=== PATIENT | female | born 1985 | race African-American/Black ===

== ENCOUNTER 2019-03-29 22:28 | Inpatient (IN) | payer MEDICAID ==
[~2019-03-29] VITALS: Ht 157.5 cm; Wt 98.0 kg
[2019-03-29] MEDS ORDERED: PNV1TABL76 PO (22:46)
[2019-03-29] MEDS ORDERED: LIDOCAINE HCL 1% 20ML VIAL (Pyxis) INJ INFIL SCH (23:00)
[2019-03-29] MEDS ORDERED: METHYLERGONOVINE MALEATE 0.2 MG/ML IM PRN (23:00)
[2019-03-29] MEDS ORDERED: BUTORPHANOL TARTRATE 2 MG/ML VIAL IV PRN (23:00)
[2019-03-29] MEDS ORDERED: PENICILLIN G POTASSIUM 5 MMU in DEXT 5% WATER 100 ML IV SCH (23:00)
[2019-03-29] MEDS ORDERED: NALOXONE HCL 0.4 MG/ML 1ML VIAL IM PRN (23:00)
[2019-03-29] MEDS ORDERED: CARBOPROST TROMETHAMINE 250 MCG/ML AMPUL IM PRN (23:00)
[2019-03-29] MEDS: LACTATED RINGERS 1,000 ML IV SCH (23:20)
[2019-03-29 23:32] LABS: CLARITY URINE CLEAR (CLEAR); COLOR URINE YELLOW (YELLOW); KETONES URINE TRACE (NEGATIVE); LEUKOCYTE ESTERASE URINE TRACE (NEGATIVE); NITRITE URINE NEGATIVE (NEGATIVE); OCCULT BLOOD URINE NEGATIVE (NEGATIVE); PH URINE 6.5 (4.5-8.0); PROTEIN URINE NEGATIVE (NEGATIVE); SPECIFIC GRAVITY URINE 1.019 (1.005-1.030)
[2019-03-29 23:33] LABS: BASOPHILS % 0.4 % (0.0-2.0); EOSINOPHILS % 1.3 % (0.0-5.0); HEMATOCRIT. 42.4 % (36.0-48.0); HEMOGLOBIN. 14.5 g/dL (12.0-16.0); LYMPHOCYTES % 15.4 % (20.0-50.0); MEAN CORPUSCULAR VOLUME 93.6 fL (81.0-99.0); MEAN PLATELET VOLUME 8.8 fl (7.4-10.4); MONOCYTES % 5.6 % (2.0-8.0); NEUTROPHILS % 77.3 % (40.0-76.0); PLATELET 109 x1000/uL (130-400); RED BLOOD CELL COUNT 4.53 mill/uL (4.2-5.4); RED CELL DISTRIBUTION WIDTH 13.8 % (11.6-14.6)
[2019-03-29 23:35] LABS: INR 0.9; PROTHROMBIN TIME 9.3 sec (9.6-11.0)
[2019-03-29 23:43] LABS: *AMPHETAMINES SCREEN URINE NEGATIVE (NEGATIVE); *BARBITURATES SCREEN URINE NEGATIVE (NEGATIVE); *BENZODIAZEPINES SCREEN URINE NEGATIVE (NEGATIVE); *COCAINE SCREEN URINE NEGATIVE (NEGATIVE); METHADONE URINE SCREEN NEGATIVE (NEGATIVE); OPIATES URINE SCREEN NEGATIVE (NEGATIVE)
[2019-03-29 23:44] LABS: CANNABINOID URINE SCREEN NEGATIVE (NEGATIVE); PHENCYCLIDINE URINE SCREEN NEGATIVE (NEGATIVE)
[2019-03-29] MEDS ORDERED: ROPIVACAINE HCL/PF EPIDURAL 200 ML EPI SCH (23:45)
[2019-03-30 00:04] LABS: HEPATITIS B SURFACE ANTIGEN NEGATIVE
[2019-03-30] MEDS: LACTATED RINGERS 1,000 ML IV SCH ×2 (00:30→05:20)
[2019-03-30] MEDS: PENICILLIN G POTASSIUM 2.5 MMU in DEXTROSE 5% WATER 50 ML IV SCH ×2 (05:26→09:14)
[2019-03-30] MEDS ORDERED: IBUPROFEN 800MG TABLET PO PRN (10:00)
[2019-03-30] MEDS: DEXT 5%/LR + PITOCIN 20UNITS/L 1,000 ML IV SCH ×2 (10:13→10:40)
[2019-03-30] MEDS ORDERED: ONDANSETRON HCL 4MG/2ML INJ IV NR (10:45)
[2019-03-30] MEDS ORDERED: DEXT 5%/LR + PITOCIN 20UNITS/L 1,000 ML IV SCH (11:23)
[2019-03-30] MEDS ORDERED: IBUPROFEN 400MG TABLET PO PRN (11:30)
[2019-03-30] MEDS ORDERED: RHO(D) IMMUNE GLOBULIN 300 MCG/SYR IM PRN (11:30)
[2019-03-30] MEDS ORDERED: LANOLIN OINT 7GM TUBE TOP PRN (11:30)
[2019-03-30] MEDS ORDERED: METHYLERGONOVINE MALEATE 0.2 MG/ML IM PRN (11:30)
[2019-03-30 12:00] VITALS: BP 113/64
[2019-03-30 13:00] VITALS: BP 113/64
[2019-03-30 15:54] VITALS: BP 109/66
[2019-03-30] MEDS: IBUPROFEN 800MG TABLET PO PRN ×2 (16:11→22:49)
[2019-03-30 20:00] VITALS: BP 106/62
[2019-03-30] MEDS: DOCUSATE SODIUM 100MG CAPSULE PO SCH (20:55)
[2019-03-31] MEDS ORDERED: IBUPROFEN 800MG TABLET PO SCH (01:00)
[2019-03-31] MEDS: IBUPROFEN 800MG TABLET PO PRN ×3 (01:09→15:18)
[2019-03-31 04:53] VITALS: BP 112/65
[2019-03-31 06:50] LABS: BASOPHILS % 0.2 % (0.0-2.0); EOSINOPHILS % 1.4 % (0.0-5.0); HEMATOCRIT. 36.6 % (36.0-48.0); HEMOGLOBIN. 12.5 g/dL (12.0-16.0); LYMPHOCYTES % 16.1 % (20.0-50.0); MEAN CORPUSCULAR HEMOGLOBIN 32.2 pg (28.0-32.0); MEAN CORPUSCULAR VOLUME 93.9 fL (81.0-99.0); MEAN PLATELET VOLUME 9.2 fl (7.4-10.4); MONOCYTES % 8.3 % (2.0-8.0); PLATELET 108 x1000/uL (130-400); RED BLOOD CELL COUNT 3.89 mill/uL (4.2-5.4); RED CELL DISTRIBUTION WIDTH 14.2 % (11.6-14.6)
[2019-03-31 08:00] VITALS: BP 101/54
[2019-03-31] MEDS ORDERED: LACTATED RINGERS 2,000 ML IV SCH (09:00)
[2019-03-31] MEDS ORDERED: PRENATAL VIT/FE FUMARATE/FA TABLET PO SCH (09:00)
[2019-03-31] MEDS ORDERED: CAFFEINE 200MG TABLET PO SCH (09:00)
[2019-03-31 15:57] VITALS: BP 119/64
[2019-03-31] MEDS: ACETAMINOPHEN 500MG TABLET PO PRN ×2 (18:07→23:56)
[2019-03-31 19:30] VITALS: BP 120/68
[2019-03-31 23:30] VITALS: BP 118/65
[2019-03-31] MEDS: DOCUSATE SODIUM 100MG CAPSULE PO SCH (23:56)
[2019-04-01] MEDS ORDERED: IBUP-2030 PO ×2 (01:42)
== END 2019-04-01 11:20 | disposition home or self-care (01) | DRG 560 ==
LOC: INTOOBSV 22:28 → OBSVTOIN 22:28 → 8 EST LDRP 22:28 → 8EST 03-30 11:30
PROVIDERS: ADMIT Specialist; ATTEND Obstetrics & Gynecology
PROC: 10E0XZZ Delivery of Products of Conception, External Approach (ICD-10-PCS; principal; 2019-03-30)
PROC: 3E0R3BZ Introduction of Anesthetic Agent into Spinal Canal, Percutaneous Approach (ICD-10-PCS; 2019-03-30)
PROC: 00HU33Z Insertion of Infusion Device into Spinal Canal, Percutaneous Approach (ICD-10-PCS; 2019-03-30)
DX: O77.0 Labor and delivery complicated by meconium in amniotic fluid (principal); F17.200 Nicotine dependence, unspecified, uncomplicated; M54.2 Cervicalgia; O90.89 Other complications of the puerperium, not elsewhere classified; O99.334 Smoking (tobacco) complicating childbirth; R51 Headache; Z37.0 Single live birth; Z3A.40 40 weeks gestation of pregnancy
CPT/HCPCS: 36415; 80305; 81003; 86592; 86703; 86762; 86850; 86900; 87340; 99281; G0378; J0595; J2210; J2405; J2540; J2590; J2795; J3490; J7060; J7120

== ENCOUNTER 2020-01-07 15:19 | Emergency (ER) | payer MEDICAID ==
[~2020-01-07] VITALS: Ht 167.6 cm; Wt 85.0 kg
[~2020-01-07 15:19] MED LIST: IBUP-2030 PO
[2020-01-07] MEDS ORDERED: IBUPROFEN 800MG TABLET PO ONE (17:00)
[2020-01-07 17:44] VITALS: BP 117/81
== END 2020-01-07 17:47 | disposition home or self-care (01) ==
LOC: ER 15:19
DX: S82.831A Other fracture of upper and lower end of right fibula, initial encounter for closed fracture (principal); S00.12XA Contusion of left eyelid and periocular area, initial encounter; W18.30XA Fall on same level, unspecified, initial encounter; Y93.89 Activity, other specified; Y92.89 Other specified places as the place of occurrence of the external cause; Y99.8 Other external cause status
CPT/HCPCS: 29515; 73610; 73630; 99284

== ENCOUNTER 2020-11-13 00:28 | Inpatient (IN) | payer MEDICAID ==
[~2020-11-13] VITALS: Ht 157.5 cm; Wt 94.8 kg
[2020-11-13] MEDS ORDERED: LACTATED RINGERS 1,000 ML IV SCH (01:30)
[2020-11-13] MEDS ORDERED: CARBOPROST TROMETHAMINE 250 MCG/ML AMPUL IM PRN (01:30)
[2020-11-13] MEDS ORDERED: BUTORPHANOL TARTRATE 2 MG/ML VIAL IV PRN (01:30)
[2020-11-13] MEDS ORDERED: NALOXONE HCL 0.4 MG/ML 1ML VIAL IM PRN (01:30)
[2020-11-13] MEDS ORDERED: LIDOCAINE HCL 1% 20ML VIAL (Pyxis) INJ INFIL SCH (01:30)
[2020-11-13] MEDS ORDERED: METHYLERGONOVINE MALEATE 0.2 MG/ML IM PRN ×2 (01:30→04:30)
[2020-11-13 01:47] LABS: BASOPHILS % 0.4 % (0.0-2.0); EOSINOPHILS % 1.6 % (0.0-5.0); HEMATOCRIT. 43.3 % (36.0-48.0); HEMOGLOBIN. 14.3 g/dL (12.0-16.0); LYMPHOCYTES % 26.5 % (20.0-50.0); MEAN CORPUSCULAR HEMOGLOBIN 31.4 pg (28.0-32.0); MEAN CORPUSCULAR VOLUME 94.9 fL (81.0-99.0); MEAN PLATELET VOLUME 9.2 fl (7.4-10.4); MONOCYTES % 7.5 % (2.0-8.0); PLATELET 132 x1000/uL (130-400); RED BLOOD CELL COUNT 4.56 mill/uL (4.2-5.4); RED CELL DISTRIBUTION WIDTH 14.5 % (11.6-14.6)
[2020-11-13] MEDS ORDERED: PENICILLIN G POTASSIUM 5 MMU in DEXT 5% WATER 100 ML IV SCH (02:00)
[2020-11-13] MEDS ORDERED: MINERAL OIL 30ML BOTTLE PO NR (02:00)
[2020-11-13 02:11] LABS: INR 0.9; PROTHROMBIN TIME 9.8 sec (9.6-11.0)
[2020-11-13 02:19] LABS: CLARITY URINE CLEAR (CLEAR); COLOR URINE YELLOW (YELLOW); KETONES URINE NEGATIVE (NEGATIVE); LEUKOCYTE ESTERASE URINE NEGATIVE (NEGATIVE); NITRITE URINE NEGATIVE (NEGATIVE); OCCULT BLOOD URINE NEGATIVE (NEGATIVE); PROTEIN URINE NEGATIVE (NEGATIVE); SPECIFIC GRAVITY URINE 1.015 (1.005-1.030)
[2020-11-13 02:23] LABS: HEPATITIS B SURFACE ANTIGEN NEGATIVE
[2020-11-13 02:40] LABS: *AMPHETAMINES SCREEN URINE NEGATIVE (NEGATIVE); *BARBITURATES SCREEN URINE NEGATIVE (NEGATIVE); *BENZODIAZEPINES SCREEN URINE NEGATIVE (NEGATIVE); *COCAINE SCREEN URINE NEGATIVE (NEGATIVE); METHADONE URINE SCREEN NEGATIVE (NEGATIVE); OPIATES URINE SCREEN NEGATIVE (NEGATIVE)
[2020-11-13 02:41] LABS: CANNABINOID URINE SCREEN NEGATIVE (NEGATIVE); PHENCYCLIDINE URINE SCREEN NEGATIVE (NEGATIVE)
[2020-11-13] MEDS: DEXT 5%/LR + PITOCIN 20UNITS/L 1,000 ML IV SCH ×2 (03:19→04:33)
[2020-11-13 04:29] VITALS: BP 130/67
[2020-11-13] MEDS ORDERED: RHO(D) IMMUNE GLOBULIN 300 MCG/SYR IM PRN (04:30)
[2020-11-13] MEDS ORDERED: LANOLIN OINT 7GM TUBE TOP PRN (04:30)
[2020-11-13] MEDS ORDERED: IBUPROFEN 400MG TABLET PO PRN (04:30)
[2020-11-13] MEDS ORDERED: DEXT 5%/LR + PITOCIN 20UNITS/L 1,000 ML IV SCH (04:45)
[2020-11-13] MEDS: IBUPROFEN 800MG TABLET PO PRN ×3 (04:59→18:10)
[2020-11-13] MEDS ORDERED: PENICILLIN G POTASSIUM 2.5 MMU in DEXTROSE 5% WATER 50 ML IV SCH (06:00)
[2020-11-13] MEDS ORDERED: IBUPROFEN 800MG TABLET PO PRN (06:30)
[2020-11-13] MEDS ORDERED: IBUPROFEN 800MG TABLET PO SCH (06:30)
[2020-11-13 07:41] VITALS: BP 100/50
[2020-11-13] MEDS ORDERED: PRENATAL VIT/FE FUMARATE/FA TABLET PO SCH (09:00)
[2020-11-13 16:12] VITALS: BP 105/51
[2020-11-13] MEDS ORDERED: TETANUS, DIPHTHERIA, PERTUSSIS VAC/PF 0.5ML (>7YR OLD) IM ONE (17:45)
[2020-11-13 19:30] VITALS: BP 92/47
[2020-11-14 04:00] VITALS: BP 111/53
[2020-11-14] MEDS ORDERED: MULT-622 MT (05:49)
[2020-11-14] MEDS ORDERED: FERR325T6 MT (05:49)
[2020-11-14 07:24] LABS: BASOPHILS % 0.4 % (0.0-2.0); EOSINOPHILS % 1.8 % (0.0-5.0); HEMATOCRIT. 35.1 % (36.0-48.0); LYMPHOCYTES % 30.9 % (20.0-50.0); MEAN CORPUSCULAR HEMOGLOBIN 31.7 pg (28.0-32.0); MEAN CORPUSCULAR VOLUME 92.7 fL (81.0-99.0); MEAN PLATELET VOLUME 9.7 fl (7.4-10.4); MONOCYTES % 7.6 % (2.0-8.0); NEUTROPHILS % 59.3 % (40.0-76.0); PLATELET 122 x1000/uL (130-400); RED BLOOD CELL COUNT 3.79 mill/uL (4.2-5.4)
[2020-11-14 08:00] VITALS: BP 104/44
== END 2020-11-14 12:45 | disposition home or self-care (01) | DRG 560 ==
LOC: 8 EST LDRP 00:28 → UNDOADMOB 00:28 → 8 EST LDRP 03:52 → OBSVTOIN 03:52 → 8EST 06:50
PROVIDERS: ADMIT Obstetrics & Gynecology; ATTEND Obstetrics & Gynecology
PROC: 10E0XZZ Delivery of Products of Conception, External Approach (ICD-10-PCS; principal; 2020-11-13)
DX: O48.0 Post-term pregnancy (principal); O77.0 Labor and delivery complicated by meconium in amniotic fluid; Z37.0 Single live birth; Z3A.40 40 weeks gestation of pregnancy
CPT/HCPCS: 36415; 80305; 81003; 85025; 86592; 86703; 86762; 86850; 86900; 87340; 90715; 99281; G0378; J0595; J2210; J2540; J2590; J3490; J7060; J7120

== ENCOUNTER 2022-06-29 17:50 | Emergency (ER) | payer MEDICAID, OTHER ==
[~2022-06-29] VITALS: Ht 157.5 cm; Wt 82.8 kg
[~2022-06-29 17:50] MED LIST changes: +FERR325T6 MT; +MULT-622 MT
[2022-06-29 18:02] VITALS: BP 109/74
[2022-06-29] MEDS ORDERED: MICO24CM2 VG (21:10)
[2022-06-29 21:35] LABS: CLARITY URINE CLOUDY (CLEAR); COLOR URINE DARK YELLOW (YELLOW); KETONES URINE TRACE (NEGATIVE); LEUKOCYTE ESTERASE URINE 2+ (NEGATIVE); NITRITE URINE POSITIVE (NEGATIVE); OCCULT BLOOD URINE NEGATIVE (NEGATIVE); PROTEIN URINE NEGATIVE (NEGATIVE); SPECIFIC GRAVITY URINE 1.024 (1.005-1.030)
[2022-06-29] MEDS ORDERED: NITR-87 MT (22:46)
[2022-07-02 04:09] LABS: NEISSERIA GONORRHOEAE NAA Negative (Negative)
== END 2022-06-29 21:55 | disposition home or self-care (01) ==
LOC: ER 17:50
DX: N39.0 Urinary tract infection, site not specified (principal); N89.8 Other specified noninflammatory disorders of vagina
CPT/HCPCS: 81003; 81025; 87086; 87210; 87491; 87591; 99283; Z7610

== ENCOUNTER 2022-12-30 14:37 | Emergency (ER) | payer OTHER ==
[~2022-12-30] VITALS: Ht 170.2 cm; Wt 80.0 kg
[~2022-12-30 14:37] MED LIST changes: +MICO24CM2 VG; +NITR-87 MT
[2022-12-30 14:42] VITALS: TEMP 97.6; O2SAT 100
[2022-12-30] MEDS ORDERED: ACETAMINOPHEN 325MG TABLET PO ONE (15:30)
[2022-12-30] MEDS ORDERED: MORPHINE SULFATE 4 MG/ML CPJ (NOT FOR IM USE) IV ONE ×2 (16:00→20:30)
[2022-12-30 17:51] LABS: HEMATOCRIT. 41.1 % (36.0-48.0); HEMOGLOBIN. 13.3 g/dL (12.0-16.0); MEAN CORPUSCULAR HEMOGLOBIN 31.4 pg (28.0-32.0); MEAN CORPUSCULAR HGB CONC 32.4 g/dL (31.0-37.0); MEAN CORPUSCULAR VOLUME 96.8 fL (81.0-99.0); MEAN PLATELET VOLUME 8.8 fl (7.4-10.4); PLATELET 143 x1000/uL (130-400); RED BLOOD CELL COUNT 4.24 mill/uL (4.2-5.4); RED CELL DISTRIBUTION WIDTH 15.1 % (11.6-14.6); WHITE BLOOD COUNT 13.6 x1000/uL (4.5-11.0)
[2022-12-30 17:52] LABS: DIFFERENTIAL COMMENT 1
[2022-12-30 17:54] LABS: CHLORIDE 104 mEq/L (98-107); INDEX HEMOLYSI 1 (1-3); INDEX ICTERIC 1 (1-4); INDEX LIPEMIC 1 (1-3); POTASSIUM 3.5 mEq/L (3.5-5.1); SODIUM 133 mEq/L (136-145)
[2022-12-30 18:07] LABS: ALANINE AMINOTRANSFERASE 14 IU/L (13-61); ALBUMIN 2.9 g/dL (3.4-5.0); ASPARTATE AMINOTRANSFERASE 10 IU/L (15-37); BILIRUBIN TOTAL 1.2 mg/dL (0.1-1.0); CALCIUM 8.3 mg/dL (8.5-10.1); CARBON DIOXIDE 20 mEq/L (21-32); CREATININE 0.6 mg/dL (0.6-1.3); GLUCOSE 107 mg/dL (70-105); UREA NITROGEN BLOOD 7 mg/dL (7-21)
[2022-12-30 18:17] LABS: B-HCG QUANTITATIVE 29285 mIU/mL (<3)
[2022-12-30 18:29] LABS: ANISOCYTOSIS 1+; PLATELET ESTIMATE NORMAL
[2022-12-30] MEDS ORDERED: KETOROLAC 60MG/2ML VIAL IM ONE (19:15)
[2022-12-30] MEDS ORDERED: MISOPROSTOL 200MCG TABLET PO ONE (19:15)
[2022-12-30 21:35] VITALS: BP 106/61; PULSE 77; RESP 20
[2022-12-30 21:43] LABS: CLARITY URINE TURBID (CLEAR); COLOR URINE ORANGE (YELLOW); GLUCOSE URINE NEGATIVE (NEGATIVE); KETONES URINE NEGATIVE (NEGATIVE); LEUKOCYTE ESTERASE URINE 3+ (NEGATIVE); NITRITE URINE POSITIVE (NEGATIVE); OCCULT BLOOD URINE 3+ (NEGATIVE); PH URINE 6.5 (4.5-8.0); PROTEIN URINE 2+ (NEGATIVE); SPECIFIC GRAVITY URINE 1.025 (1.005-1.030)
[2022-12-30] MEDS ORDERED: MISO200T MT (21:49)
[2022-12-30] MEDS ORDERED: CEPH500C2 MT (21:49)
[2022-12-30 21:56] LABS: BACTERIA URINE 3+; SQUAMOUS EPITHELIAL CELL URINE 1+ /lpf (RARE/1+)
[2022-12-30] MEDS ORDERED: IBUP-2028 MT (21:56)
[2022-12-30 21:57] LABS: RBC URINE TNTC /hpf (0-2); WBC URINE TNTC /hpf (0-2)
[2022-12-30] MEDS ORDERED: MORPHINE SULFATE 2 MG/ML CPJ (NOT FOR IM USE) IV ONE (23:00)
== END 2022-12-31 03:37 | disposition home or self-care (01) ==
LOC: ER 15:36
DX: O26.891 Other specified pregnancy related conditions, first trimester (principal); Z3A.08 8 weeks gestation of pregnancy; Z79.899 Other long term (current) drug therapy
CPT/HCPCS: 80053; 81003; 84702; 85025; 86850; 86900; 86901; 87086; 87186; 87077; 36415; 76801; 76817; 96372; 96374; 99285; J1885; J2270 ×2; Z7610 ×4